=== PATIENT | female | born 1960 | race Caucasian/White ===

== ENCOUNTER 2017-11-13 20:31 | Emergency (ER) | payer OTHER ==
[~2017-11-13] VITALS: Ht 142.2 cm; Wt 68.2 kg
[2017-11-13] MEDS ORDERED: IBUPROFEN 600 MG TABLET PO ONE (22:00)
[2017-11-13 22:52] VITALS: BP 148/84
== END 2017-11-13 22:56 | disposition home or self-care (01) ==
LOC: EMS 20:34
DX: S13.4XXA Sprain of ligaments of cervical spine, initial encounter (principal); M25.551 Pain in right hip; V43.62XA Car passenger injured in collision with other type car in traffic accident, initial encounter; Y93.89 Activity, other specified; Y92.89 Other specified places as the place of occurrence of the external cause; Y99.8 Other external cause status
CPT/HCPCS: 70450; 72125; 73502; 99284